=== PATIENT | female | born 1975 | race Caucasian/White ===

== ENCOUNTER 2020-03-22 09:15 | Emergency (ER) | payer OTHER ==
[2020-03-22] MEDS ORDERED: Tetracaine HCl/PF 0.5% 4 ML Bottle EYELF ONE (09:25)
[2020-03-22] MEDS ORDERED: Fluorescein 1 MG Ophth Strip EYELF ONE (09:26)
[2020-03-22] MEDS ORDERED: Gentamicin 0.3% Ophth Soln 5 ML Bottle EYELF ONE (09:27)
--- NOTE | 2020-03-22 09:34 | EDM.PDOC ---
<Dmitriy Jones - Last Filed: 03/22/20 09:53> ED HPI GENERAL MEDICAL PROBLEM - General Chief Complaint: Eye Problems Stated Complaint: EYE PROBLEMS Time Seen by Provider: 03/22/20 09:40 Source of Information: Reports: Patient History Limitations: Reports: No Limitations - History of Present Illness INITIAL COMMENTS - FREE TEXT/NARRATIVE: Patient is a pleasant 45 yo female here today with eye pain. She woke up last night after fishing yesterday with eye pain. This was first noticed perhaps 4am. She went back to sleep and it was worse when she awoke again. She wear contacts but does not have any in now. She recently got a new pair. She has a sensation of something under the eyelid and has associated buring pain. THe pain in the eye causes a runny nose too. She has used a wet washcloth covering the eye and keeping it closed to treat it so far at home. It has a "filmy" sensation on it. She is on medication for anxiety and depression. She has several antibiotic allergies, and does not smoke. 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 ED EXAM GENERAL W FULL EYE - Physical Exam Exam: See Below Exam Limited By: No Limitations General Appearance: Alert, Mild Distress Eye Exam: Right Eye: Normal Inspection, Left Eye: Conjunctival Injection, Corneal Abrasion, Bilateral Eye: EOMI Eyelids: Bilateral: Normal Appearance Conjunctiva & Sclera: Right: Normal Appearance, Left: Injected Cornea Exam: Right: Normal Appearance, Left: Corneal Abrasion (8 oclock position over iris) Extraocular Movements: Bilateral: Intact Pupils: Normal Accommodation Ears: Normal External Exam Nose: Normal Inspection Throat/Mouth: Normal Inspection Head: Atraumatic Neck: Normal Inspection Respiratory/Chest: No Respiratory Distress, Lungs Clear, Normal Breath Sounds Cardiovascular: Normal Peripheral Pulses, Regular Rate, Rhythm GI/Abdominal: Soft (Female) Exam: Deferred Rectal (Female) Exam: Deferred Back Exam: Normal Inspection Extremities: Normal Inspection Neurological: Alert, Oriented, Normal Cognition Psychiatric: Normal Affect, Normal Mood Skin Exam: Warm, Dry Course - Re-Assessments/Exams Free Text/Narrative Re-Assessment/Exam: 03/22/20 09:49 Flourescein was used to examine eye after pain relief with tetracaine. A corneal abrasion was noted at the 8 o clock position on the cornea over the iris. A gentamicin drop was given and bottle was given to patient. Departure - Departure Time of Disposition: 09:50 Disposition: Home, Self-Care 01 Condition: Good Clinical Impression: Corneal abrasion Qualifiers: Encounter type: initial encounter Laterality: left Qualified Code(s): S05.02XA - Injury of conjunctiva and corneal abrasion without foreign body, left eye, initial encounter - Discharge Information *PRESCRIPTION DRUG MONITORING PROGRAM REVIEWED*: Not Applicable *COPY OF PRESCRIPTION DRUG MONITORING REPORT IN PATIENT [place]: Not Applicable Instructions: Corneal Abrasion Forms: ED Department Discharge Additional Instructions: Use tetracaine drosp for the first 24 hours for pain control, along with ibuprofen. Use antibiotic gentamicin drops four times a day for 5 days. See you eye doctor in a few days to ensure that it is healing. Avoid using contacts until this is healed. Sepsis Event Note (ED) - Evaluation Sepsis Screening Result: No Definite Risk <Srinivas Berrios - Last Filed: 03/22/20 10:12> Course - Vital Signs Last Recorded V/S: Last Vital Signs Temp 98.6 F 03/22/20 09:24 Pulse 66 03/22/20 09:24 Resp 18 03/22/20 09:24 BP 135/76 03/22/20 09:24 Pulse Ox 100 03/22/20 09:24 - Orders/Labs/Meds Meds: Medications Discontinued Medications Generic Name Dose Route Start Last Admin Trade Name Freq PRN Reason Stop Dose Admin Fluorescein Sodium 1 mg 03/22/20 09:26 03/22/20 09:33 Ful-Shirin EYELF 03/22/20 09:27 1 mg ONETIME ONE Administration Gentamicin Sulfate 1 ml 03/22/20 09:27 03/22/20 09:32 Garamycin 0.3% Ophth Soln EYELF 03/22/20 09:28 1 ml ONETIME ONE Administration Tetracaine HCl 1 ml 03/22/20 09:25 03/22/20 09:33 Tetracaine 0.5% Steri-Unit Amy EYELF 03/22/20 09:26 1 ml ASDIRECTED ONE Administration - Re-Assessments/Exams Free Text/Narrative Re-Assessment/Exam: 03/22/20 09:43 I saw and evaluated the patient. Discussed with resident and agree with residents findings and plan as documented in the residents note. Sepsis Event Note (ED) - Focused Exam Vital Signs: Vital Signs Temp Pulse Resp BP Pulse Ox 03/22/20 09:24 98.6 F 66 18 135/76 100
== END 2020-03-22 09:57 | disposition home or self-care (01) ==
LOC: DL.ED 09:15
DX: S05.02XA Injury of conjunctiva and corneal abrasion without foreign body, left eye, initial encounter (principal); Z88.1 Allergy status to other antibiotic agents; Z79.899 Other long term (current) drug therapy; X58.XXXA Exposure to other specified factors, initial encounter
CPT/HCPCS: 99283; A9270